=== PATIENT | female | born 1995 | race African-American/Black ===

== ENCOUNTER 2023-03-27 07:41 | Emergency (ER) | payer OTHER ==
[~2023-03-27] VITALS: Ht 170.2 cm; Wt 100.0 kg
[2023-03-27 08:05] VITALS: BP 122/73; PULSE 69; RESP 16; TEMP 98.6
[2023-03-27] MEDS ORDERED: DEXT10TA4 PO (08:08)
[2023-03-27] MEDS ORDERED: AMPH20TA3 PO (08:08)
[2023-03-27] MEDS ORDERED: CORTSOL AD (08:13)
[2023-03-28] MEDS ORDERED: TRAM-559 PO (17:44)
== END 2023-03-27 08:42 | disposition home or self-care (01) ==
LOC: EMS 07:53
DX: H60.501 Unspecified acute noninfective otitis externa, right ear (principal)
CPT/HCPCS: 99283; Z7502

== ENCOUNTER 2023-03-28 17:25 | Emergency (ER) | payer OTHER ==
[~2023-03-28] VITALS: Ht 170.2 cm; Wt 100.0 kg
[~2023-03-28 17:25] MED LIST: AMPH20TA3 PO; CORTSOL AD; DEXT10TA4 PO
[2023-03-28 17:26] VITALS: BP 122/81; PULSE 58; RESP 16; TEMP 98.3
[2023-03-28] MEDS ORDERED: TRAM-559 PO (17:44)
== END 2023-03-28 18:15 | disposition home or self-care (01) ==
LOC: EMS 17:27
DX: H60.501 Unspecified acute noninfective otitis externa, right ear (principal)
CPT/HCPCS: 99283; Z7502